=== PATIENT | male | born 1975 | race Caucasian/White ===

== ENCOUNTER → 2022-11-18 | Outpatient (CLI) | payer OTHER ==
[~2022-11-18] MED LIST: CYCL-707 PO; NAPR-885 PO
== END ==
LOC: M RAD 06:17
DX: I65.23 Occlusion and stenosis of bilateral carotid arteries (principal)

== ENCOUNTER 2022-12-03 06:43 | Day surgery (SDC) | payer OTHER ==
[~2022-12-03] VITALS: Ht 165.1 cm; Wt 88.9 kg
[~2022-12-03 06:43] MED LIST changes: +NS 1,000 ML IV ONE
[2022-12-03] MEDS ORDERED: propofoL 200 MG/20 ML VIAL As Ordered ONE (07:42)
[2022-12-03] MEDS ORDERED: fentaNYL 100 MCG/2 ML INJECTION As Ordered ONE (08:18)
[2022-12-03 08:41] VITALS: TEMP 96.5
[2022-12-03 09:16] VITALS: BP 134/80; O2SAT 97
== END 2022-12-03 09:38 | disposition home or self-care (01) ==
LOC: M OPP 06:43
PROVIDERS: ATTEND Internal Medicine Gastroenterology
DX: Z12.11 Encounter for screening for malignant neoplasm of colon (principal); K64.0 First degree hemorrhoids; K21.00 Gastro-esophageal reflux disease with esophagitis, without bleeding; R12 Heartburn; Z79.1 Long term (current) use of non-steroidal anti-inflammatories (NSAID)
CPT/HCPCS: 43239; 45378; 88305; J3010